=== PATIENT | male | born 2000 | race African-American/Black ===

== ENCOUNTER 2022-06-28 14:44 | Emergency (ER) | payer OTHER ==
[2022-06-28 15:05] VITALS: BP 184/114
--- NOTE | 2022-06-28 15:47 | ED Physician Documentation ---
PD HPI UPPER EXT INJURY - Stated complaint Stated Complaint: SWOLLEN FINGER - Chief complaint Chief Complaint: Ext Problem - History obtained from History obtained from: Patient (2 days of atraumatic pain/swelling L5th finger.) Review of Systems Constitutional: denies: Fever, Chills Cardiac: reports: Reviewed and negative Respiratory: reports: Reviewed and negative PD PAST MEDICAL HISTORY - Present Medications Home Medications: Ambulatory Orders Medication Instructions Recorded Confirmed Amox/Clav 875/125 [Augmentin] 1 each PO Q12H #14 tablet 06/28/22 - Allergies Allergies/Adverse Reactions: Allergies Allergy/AdvReac Type Severity Reaction Status Date / Time No Known Drug Allergies Allergy Verified 06/28/22 15:05 PD ED PE NORMAL - Vitals Vital signs reviewed: Yes - General General: Alert and oriented X 3, No acute distress - Extremities Extremities: Other (Evidence of significant finger nail biting. Paronychia both sides L 5th finger.) - Neuro Neuro: Alert and oriented X 3, Normal speech Results - Vitals Vitals: Vital Signs - 24 hr 06/28/22 15:03 Temperature 36.4 C L Heart Rate 73 Respiratory 16 Rate Blood Pressure 184/114 H O2 Saturation 98 Oxygen O2 Source Room air Procedures - Abscess I&D (location) L 5TH FINGER PARONYCHIA Preparation: Lidocaine 1% (DIGITAL BLOCK) Incision: Incised with scalpel (DORSAL WITH FREE FLOWING PUS) Other: Pt tolerated well, Dressing applied Departure - Departure Disposition: 01 Home, Self Care Clinical Impression: Paronychia Condition: Good Record reviewed to determine appropriate education?: Yes Instructions: ED Fingernail Infec Prescriptions: Amox/Clav 875/125 [Augmentin] 1 each PO Q12H #14 tablet Comments: RECHECK WITH YOUR FLIGHT SURGEON IN A FEW DAYS. OK TO WASH WITH SOAP AND WATER AND KEEP A BANDAID ON IT. RETURN IF WORSE.
== END 2022-06-28 16:15 | disposition home or self-care (01) ==
LOC: ED 14:44
DX: L03.012 Cellulitis of left finger (principal)
CPT/HCPCS: 26010